=== PATIENT | male | born 1950 | race Caucasian/White ===

== ENCOUNTER 2017-10-10 14:07 | Inpatient (IN) | payer OTHER, MEDICAID ==
[~2017-10-10] VITALS: Ht 177.8 cm; Wt 72.0 kg
[2017-10-10] MEDS ORDERED: MIDAZOLAM DRIP 50 mg/50mL 50 ML IV ONE (14:13)
[2017-10-10] MEDS ORDERED: ETOMIDATE (2MG/ML) 20ML VIAL IV ONE ×2 (14:13→14:15)
[2017-10-10] MEDS ORDERED: SUCCINYLCHOLINE CHLORIDE 20 MG/ML 10ML VIAL IV ONE ×2 (14:13→14:15)
[2017-10-10] MEDS ORDERED: NOREPINEPHRINE 8 MG/250ML KIT 250 ML IV ONE (14:32)
[2017-10-10] MEDS: NOREPINEPHRINE 8 MG/250ML KIT 250 ML IV SCH (14:50)
[2017-10-10] MEDS ORDERED: MIDAZOLAM DRIP 50 mg/50mL 50 ML IV SCH (14:50)
[2017-10-10 15:02] VITALS: BP 65/39
[2017-10-10 15:10] LABS: Basophils # (auto) 0 uL; Basophils % (auto) 0.3 % (0.0-2.0); Eosinophils # (auto) 0 uL; Eosinophils % (auto) 0.1 % (0.0-7.0); Hematocrit 42.1 % (41.0-53.0); Hemoglobin 13.4 g/dL (13.5-17.5); Lymphocytes # (auto) 0.1 uL; Mean Corpuscular Hemoglobin 30.9 pg (28.0-32.0); Mean Corpuscular Hgb Conc. 31.9 g/dL (32.0-36.0); Mean Corpuscular Volume 96.9 fL (80.0-100.0); Monocytes # (auto) 0.1 uL; Monocytes % (auto) 0.5 % (0.0-12.0); Neutrophils # (auto) 12.6 uL; Neutrophils % (auto) 98.1 % (37.0-80.0); Nucleated Red Blood Cells % 0.1 %; Platelet Count (auto) 256 10^3/uL (140-450); Red Blood Cells 4.35 10^6/uL (4.5-5.90); Red Cell Distribution Width 18.2 % (11.8-14.3); White Blood Cell 12.9 10^3/uL (4.4-10.8)
[2017-10-10] MEDS ORDERED: VANCOMYCIN PER PHARMACY 0 MG IV SCH ×2 (15:15→18:00)
[2017-10-10] MEDS ORDERED: cefTRIAXone 1GM/10ml IVPUSH 10 ML IV ONE (15:15)
[2017-10-10 15:34] LABS: Alanine Aminotransferase 277 U/L (16-61); Albumin 1.6 g/dL (3.4-5.0); Alkaline Phosphatase 812 U/L (45-117); Anion Gap 13 (5-15); Aspartate Aminotransferase 155 U/L (15-37); BUN/Creatinine Ratio 60.9; Bilirubin, Total 0.6 mg/dL (0.2-1.0); Blood Alcohol < 3.0 mg/dL (0-5); Carbon Dioxide 13 mmol/L (21-32); Chloride 109 mmol/L (98-107); GFR African American 52 mL/min; GFR Non-African American 43 mL/min; Glucose 123 mg/dL (74-106); Magnesium 3.2 mg/dL (1.6-2.6); Sodium 135 mmol/L (136-145); Total Protein 6.5 g/dL (6.4-8.2)
[2017-10-10 15:39] LABS: Urine Bacteria NONE SEEN /hpf (None Seen); Urine Blood 1+ /uL (Negative); Urine Mucus FEW (None Seen); Urine WBC <1 /hpf (0 - 3)
[2017-10-10 15:44] LABS: Potassium 5.9 mmol/L (3.5-5.1)
[2017-10-10 15:45] LABS: Blood Urea Nitrogen 103 mg/dL (7-18)
[2017-10-10] MEDS ORDERED: ACETAMINOPHEN 650 MG RECT SUPP PR ONE ×2 (15:45→17:15)
[2017-10-10 16:21] VITALS: BP 77/40
[2017-10-10] MEDS ORDERED: SODIUM CHLORIDE 0.9% 3,000 ML IV ONE ×2 (17:15)
[2017-10-10] MEDS ORDERED: InsuLIN REG 1unit/0.01ml Soln (100units/ml) IV ONE ×2 (17:15→17:45)
[2017-10-10] MEDS ORDERED: DEXTROSE (50%) 50ML SYRG IV ONE ×2 (17:15→17:45)
[2017-10-10] MEDS ORDERED: SODIUM CHLORIDE 0.9% 1,000 ML IV ONE (17:45)
[2017-10-10] MEDS ORDERED: PROPOFOL 100 ML IV SCH (17:53)
[2017-10-10] MEDS: MIDAZOLAM DRIP 50 mg/50mL 50 ML IV SCH (17:53)
[2017-10-10 17:55] VITALS: BP 91/45
[2017-10-10] MEDS ORDERED: NOREPINEPHRINE 8 MG/250ML KIT 250 ML IV SCH (18:00)
[2017-10-10] MEDS ORDERED: ONDANSETRON HCL 4 MG/2 ML VIAL IV PRN (18:00)
[2017-10-10] MEDS ORDERED: CALCIUM GLUC 4.65meq/50ml D5AE 50 ML IV ONE (18:00)
[2017-10-10] MEDS ORDERED: SODIUM BICARBONATE 8.4 % INJ 50ML VIAL IV ONE (18:00)
[2017-10-10] MEDS ORDERED: MORPHINE SULFATE 4 MG/ML SYR/VIAL IV PRN (18:00)
[2017-10-10] MEDS ORDERED: PANTOPRAZOLE 40 MG/10 ML VIAL IV ONE (18:15)
[2017-10-10] MEDS ORDERED: FAMOTIDINE (10MG/ML) 2ML VL IV ONE (18:15)
[2017-10-10] MEDS: SODIUM CHLORIDE 0.9% 1,000 ML IV SCH (18:23)
[2017-10-10] MEDS ORDERED: VANCOMYCIN 1GM/250ML 250 ML IV ONE (19:45)
[2017-10-10 20:20] VITALS: BP 84/59
[2017-10-10] MEDS ORDERED: THIAMINE HCL 100 MG TAB ONE (20:40)
[2017-10-10 22:00] VITALS: BP 88/54
[2017-10-10 22:28] LABS: Potassium 4.3 mmol/L (3.5-5.1)
[2017-10-10 22:34] LABS: Calcium 7.3 mg/dL (8.5-10.1)
[2017-10-11] VITALS (21 sets, daily range): BP systolic 60–136; BP diastolic 20–68
[2017-10-11] MEDS ORDERED: ALBUMIN 5% 250 ML IV ONE ×2 (00:08→00:15)
[2017-10-11] MEDS ORDERED: VASOPRESSIN 20 UNIT/ML ONE ×2 (00:09→00:12)
[2017-10-11] MEDS ORDERED: VASOPRESSIN 50 UNITS in D5W 5% 247.5 ML IV SCH (00:15)
[2017-10-11] MEDS: SODIUM CHLORIDE 0.9% 1,000 ML IV SCH ×2 (02:34→10:14)
[2017-10-11 07:12] LABS: Basophils # (auto) 0 uL; Eosinophils # (auto) 0 uL; Eosinophils % (auto) 0.1 % (0.0-7.0); Lymphocytes # (auto) 0.4 uL; Lymphocytes % (auto) 3.1 % (10.0-50.0); Mean Corpuscular Hemoglobin 31.2 pg (28.0-32.0); Mean Corpuscular Hgb Conc. 32.4 g/dL (32.0-36.0); Mean Corpuscular Volume 96.3 fL (80.0-100.0); Monocytes # (auto) 0.2 uL; Monocytes % (auto) 1.3 % (0.0-12.0); Neutrophils # (auto) 12.8 uL; Neutrophils % (auto) 95.5 % (37.0-80.0); Nucleated Red Blood Cells % 0.2 %; Platelet Count (auto) 175 10^3/uL (140-450); Red Blood Cells 3.84 10^6/uL (4.5-5.90); Red Cell Distribution Width 18.7 % (11.8-14.3); White Blood Cell 13.4 10^3/uL (4.4-10.8)
[2017-10-11 07:33] LABS: Albumin 1.7 g/dL (3.4-5.0); Bilirubin, Total 0.7 mg/dL (0.2-1.0); Calcium 7.9 mg/dL (8.5-10.1); Potassium 5.4 mmol/L (3.5-5.1); Total Protein 5.4 g/dL (6.4-8.2)
[2017-10-11] MEDS ORDERED: cefTRIAXone 1GM/10ml IVPUSH 10 ML IV SCH (09:00)
[2017-10-11] MEDS: NOREPINEPHRINE 8 MG/250ML KIT 250 ML IV SCH ×2 (09:01→13:45)
[2017-10-11] MEDS: MIDAZOLAM DRIP 50 mg/50mL 50 ML IV SCH (09:03)
[2017-10-11] MEDS ORDERED: FAMOTIDINE (10MG/ML) 2ML VL IV SCH (10:00)
[2017-10-11] MEDS ORDERED: PANTOPRAZOLE 40 MG/10 ML VIAL IV SCH (10:00)
[2017-10-11] MEDS ORDERED: LINEZOLID 600MG/300ML 300 ML IV SCH (12:00)
[2017-10-11 14:39] LABS: INR 1.29 (0.9-1.15); Partial Thromboplastin Time 50.1 sec (22.64-33.71); Prothrombin Time 14.1 sec (9.37-12.3)
[2017-10-11] MEDS ORDERED: VANCOMYCIN 1GM/250ML 250 ML IV SCH (20:00)
== END 2017-10-11 16:55 | disposition expired | DRG 871 ==
LOC: EDBD 14:07 → ER 14:07 → EDUNIT# 14:07 → TELE 14:08
PROVIDERS: ADMIT Internal Medicine; ATTEND Internal Medicine
PROC: 0BH17EZ Insertion of Endotracheal Airway into Trachea, Via Natural or Artificial Opening (ICD-10-PCS; principal; 2017-10-10)
PROC: 5A1945Z Respiratory Ventilation, 24-96 Consecutive Hours (ICD-10-PCS; 2017-10-10)
PROC: 02HV33Z Insertion of Infusion Device into Superior Vena Cava, Percutaneous Approach (ICD-10-PCS; 2017-10-10)
DX: A41.9 Sepsis, unspecified organism (principal); R65.21 Severe sepsis with septic shock; J96.01 Acute respiratory failure with hypoxia; K72.00 Acute and subacute hepatic failure without coma; E43 Unspecified severe protein-calorie malnutrition; J69.0 Pneumonitis due to inhalation of food and vomit; N17.0 Acute kidney failure with tubular necrosis; G92 Toxic encephalopathy; C16.9 Malignant neoplasm of stomach, unspecified; D63.8 Anemia in other chronic diseases classified elsewhere; E87.1 Hypo-osmolality and hyponatremia; I13.0 Hypertensive heart and chronic kidney disease with heart failure and stage 1 through stage 4 chronic kidney disease, or unspecified chronic kidney disease; R64 Cachexia; E83.41 Hypermagnesemia; E83.51 Hypocalcemia; E87.5 Hyperkalemia; Z51.5 Encounter for palliative care; Z66 Do not resuscitate; I50.9 Heart failure, unspecified; N18.3 Chronic kidney disease, stage 3 (moderate); Z82.49 Family history of ischemic heart disease and other diseases of the circulatory system; Z85.028 Personal history of other malignant neoplasm of stomach; Z68.22 Body mass index [BMI] 22.0-22.9, adult; Z92.21 Personal history of antineoplastic chemotherapy; Z88.0 Allergy status to penicillin; Z88.2 Allergy status to sulfonamides; Z88.1 Allergy status to other antibiotic agents; B95.62 Methicillin resistant Staphylococcus aureus infection as the cause of diseases classified elsewhere
CPT/HCPCS: 36415; 36600; 51702; 70450; 71045; 80048; 80053; 80202; 80320; 81001; 82805; 82962; 83605; 83735; 84484; 85025; 85379; 85610; 85730; 87040; 87070; 87077; 87186; 87205; 93005; 94002; 94003; 96374; 96375; 99291; C9113; J0330; J0610; J1815; J2250; J3490; J7060